=== PATIENT | female | born 1945 | race Caucasian/White ===

== ENCOUNTER 2017-11-01 11:50 | Emergency (ER) | payer OTHER ==
[~2017-11-01] VITALS: Ht 165.1 cm; Wt 73.5 kg
[2017-11-01 12:43] LABS: HEMATOCRIT 38.4 % (36.0-46.0); HEMOGLOBIN 12.2 G/DL (11.9-15.5); MCH 26.8 PG (29.0-34.0); MCHC 31.8 G/DL (30.0-36.0); MCV 84.2 FL (83-99); PLATELET COUNT 352 K/uL (156-360); RBC DIS.WIDTH-CV 15.6 % (11.8-14.6); RBC DIS.WIDTH-SD 47.5 % (39-53); RED BLOOD COUNT 4.56 M/uL (3.80-5.20); WHITE BLOOD COUNT 6.6 K/uL (4.1-10.2)
[2017-11-01 12:55] LABS: CHLORIDE 102 mEq/L (99-109); POTASSIUM 4.1 mEq/L (3.7-5.4); SODIUM 139 mEq/L (136-147)
[2017-11-01 12:56] LABS: GLUCOSE 120 mg/dL (70-99)
[2017-11-01 13:00] LABS: CREATININE 0.8 mg/dL (0.6-1.3)
[2017-11-01 13:01] LABS: UREA NITROGEN (BUN) 12 mg/dL (9-23)
[2017-11-01 13:04] LABS: GFR ESTIMATE (CALCULATED) > 59 mL/min/
[2017-11-01 14:08] LABS: TROP-I INTERPRETATION NEGATIVE; TROPONIN-I < 0.01 ng/mL (0.0-0.30)
[2017-11-01] MEDS ORDERED: PANTOPRAZOLE SO40 MG PO (15:49)
[2017-11-01] MEDS ORDERED: JANUVIA100 MG PO (15:49)
[2017-11-01] MEDS ORDERED: LOSARTAN POTAS100 MG PO (15:49)
[2017-11-01] MEDS ORDERED: ATORVASTATIN CA20 MG PO (15:50)
[2017-11-01] MEDS ORDERED: AMLODIPINE BESYL5 MG PO (15:51)
[2017-11-01] MEDS ORDERED: ERGOCALCIF50000 UNIT PO (15:53)
[2017-11-01] MEDS ORDERED: LO-DOSE ASPIRIN81 M2 PO (15:54)
[2017-11-01] MEDS ORDERED: CENTRUM ADULTS1 EACH PO (15:55)
[2017-11-01] MEDS ORDERED: MECLIZINE HCL25 MG PO (17:39)
[2017-11-01 18:10] VITALS: BP 159/76
== END 2017-11-01 18:10 | disposition home or self-care (01) ==
LOC: EME 11:50
PROVIDERS: Emergency Medicine
DX: H66.93 Otitis media, unspecified, bilateral (principal); I45.10 Unspecified right bundle-branch block; R42 Dizziness and giddiness; I10 Essential (primary) hypertension; E78.5 Hyperlipidemia, unspecified; Z79.82 Long term (current) use of aspirin; Z79.84 Long term (current) use of oral hypoglycemic drugs
CPT/HCPCS: 70450; 70551; 71046; 80048; 84484; 85027; 93005; 99281; 99285; J7030